=== PATIENT | female | born 1985 | race Caucasian/White ===

== ENCOUNTER → 2019-04-03 08:40 | Outpatient (CLI) | payer MEDICAID, SELFPAY ==
--- NOTE | 2019-04-03 08:47 | US_ITS ---
PROCEDURE: US ABDOMEN LIMITED CLINICAL INDICATION: ABD PAIN COMPARISON: No exams were available for comparison FINDINGS: PANCREAS: Unremarkable. No obvious mass or abnormal fluid collection. No ductal dilatation LIVER: No focal liver lesions demonstrated. Homogeneous echogenicity. No intrahepatic biliary ductal dilatation evident. There is appropriate direction of blood flow within a non dilated portal vein RIGHT KIDNEY: Unremarkable. Normal size and echogenicity. No hydronephrosis GALLBLADDER: No gallstones, gallbladder wall thickening, pericholecystic fluid, or biliary dilatation. There is some echogenic debris in the gallbladder which may be due to some mild amount of sludge which is of questionable clinical significance IMPRESSION: Mild amount of gallbladder sludge of questionable clinical significance otherwise negative right upper quadrant ultrasound Dictated by: Pedro Curry MD 04/03/2019 17:17 Electronically signed by Pedro Curry MD in [facility] 04/03/2019 17:17
== END ==
PROVIDERS: PCP Family Medicine; Visit Provider Physician Assistant
DX: R10.11 Right upper quadrant pain (principal)
CPT/HCPCS: 76705

== ENCOUNTER → 2019-08-27 09:54 | Outpatient (CLI) | payer OTHER, SELFPAY ==
--- NOTE | 2019-08-27 09:58 | NM_ITS ---
PROCEDURE: NM HEPATOBILIARY W PHARM CLINICAL INDICATION: RUQ PAIN COMPARISON: No exams were available for comparison TECHNIQUE: DOSE: 8.6 millicurie technetium 99 M Choletec, 1.4 micrograms of CCK. FINDINGS: Homogeneous activity is present within the hepatic parenchyma. Activity is present in the gallbladder by 10 minutes. Activity is present in the small bowel by 20 minutes. The gallbladder ejection fraction is calculated to be 66 percent. CCK-The patient did not report pain or other symptoms during CCK infusion. IMPRESSION: No evidence of cholecystitis with normal gallbladder ejection fraction at 66 percent. Dictated by: Edgar Reyes 08/27/2019 13:11 Electronically signed by Edgar Reyes in [facility] 08/27/2019 13:11
--- NOTE | 2019-08-27 11:16 | HMH.ITSHM ---
Current Home Medications as stated by this patient Nakita Mckenna or community service representative. [] allergy med
== END ==
PROVIDERS: PCP Family Medicine; Visit Provider Physician Assistant
DX: R10.11 Right upper quadrant pain (principal)
CPT/HCPCS: 78227; A9537; J2805

== ENCOUNTER → 2021-04-14 11:15 | Outpatient (CLI) | payer OTHER, SELFPAY ==
--- NOTE | 2021-04-14 11:22 | CT_ITS ---
PROCEDURE: CT ABDOMEN PELVIS W CON CLINICAL INDICATION: LLQ PAIN COMPARISON: No exams were available for comparison TECHNIQUE: IV Contrast: 75ML OPTIRAY 350 Oral Contrast 20ml Gastroview Axial images obtained with sagittal and coronal reformats. All CT scans at the facility use one or more dose reduction, viz: automated exposure control, ma/kV adjustment per patient size (including targeted exams where dose is matched to indication, i.e. head), or iterative reconstruction technique. FINDINGS: Lower thorax: No acute finding ABDOMEN: Liver: The liver normal in size. There is a tiny hypodense lesion consistent with a cyst right lobe of the liver.. Gallbladder: Nondistended. No radio opaque stones. Pancreas: No masses or peripancreatic fluid collections. Spleen: unremarkable Adrenals: unremarkable Kidneys/ureters: The kidneys are normal in size and show symmetrical function after injection of IV contrast. Both kidneys appear normal. ABDOMEN & PELVIS: Stomach bowel: Nondistended. No obvious mass or thickening. The small bowel appears normal. There is contrast mixed with stool in the right and transverse colon with moderate formed stool in the descending and sigmoid colon.. Peritoneum: No abnormal fluid collections. No obvious inflammatory changes. No free air. Lymph nodes: No enlarged lymph nodes apparent. Vasculature: No evidence of abdominal aortic aneurysm. No retroperitoneal hemorrhage evident. Bones: No acute fracture PELVIS: Reproductive: The uterus is normal in size and in the midline showing normal enhancement. There is a cystic-appearing lesion left adnexa measuring 2.0 x 2.1 x 2.6 cm likely an ovarian cyst. Bladder: The urinary bladder is partially decompressed but shows no obvious abnormality. There is no free fluid in the pelvis. Appendix: Not definitely visualized but there are no pericecal inflammatory changes noted. IMPRESSION: Probable small left ovarian cyst otherwise unremarkable CT scan abdomen and pelvis Dictated by: Dr. Trae Arnold MD 04/14/2021 11:52 Dr. Trae Arnold MD in [facility] 04/14/2021 11:52
== END ==
PROVIDERS: PCP Family Medicine; Visit Provider Physician Assistant
DX: R10.32 Left lower quadrant pain (principal)
CPT/HCPCS: 74177; Q9967

== ENCOUNTER → 2021-07-20 17:10 | Outpatient (CLI) | payer OTHER, SELFPAY ==
--- NOTE | 2021-07-20 | XR_ITS ---
PROCEDURE INFORMATION: Exam: XR Chest Exam date and time: 07/20/2021 12:00 AM Age: 36 years old Clinical indication: Shortness of breath; Additional info: SOA TECHNIQUE: Imaging protocol: XR of the chest. Views: 2 views. Total images: 2 COMPARISON: CR CXR CHEST(2 VIEWS-NOT PORTABLE) 08/12/2014 2:42 PM FINDINGS: Lungs: Normal pulmonary expansion. Pulmonary vasculature grossly normal. No gross pulmonary infiltrates or edema pattern. Pleural spaces: No pleural effusion. No pneumothorax. Heart/Mediastinum: Heart size normal. No tracheal/mediastinal shift. Bones/joints: No acute osseous abnormalities are identified. IMPRESSION: No acute thoracic process.
== END ==
PROVIDERS: PCP Physician Assistant; Visit Provider Physician Assistant
DX: R06.02 Shortness of breath (principal)
CPT/HCPCS: 71046

== ENCOUNTER → 2021-07-25 09:34 | Outpatient (CLI) | payer OTHER, SELFPAY ==
[2021-07-25 10:25] VITALS: PULSE 67; PULSE 70
== END ==
PROVIDERS: PCP Physician Assistant; Visit Provider Physician Assistant
DX: R06.02 Shortness of breath (principal)
CPT/HCPCS: 94060; 94640; 94727; 94729

== ENCOUNTER → 2023-03-28 06:52 | Outpatient (CLI) | payer OTHER, SELFPAY ==
--- NOTE | 2023-03-28 06:59 | CT_ITS ---
FINAL REPORT TECHNIQUE: Thin section axial CT images with coronal and sagittal reformats were performed through the neck. This study was performed with techniques to keep radiation doses as low as reasonably achievable (ALARA). Individualized dose reduction techniques using automated exposure control or adjustment of mA and/or kV according to the patient''s size were employed. CLINICAL HISTORY: swollen lymph node right side of neck COMPARISON: None FINDINGS: No cervical adenopathy or mass lesion is present . Salivary glands are normal. Larynx is unremarkable. Thyroid gland is unremarkable. Paranasal sinuses are well aerated. IMPRESSION: No acute process. Reviewed, Interpreted and Dictated by Maverick Suarez MD Transcribed by Kailyn Knott Authenticated and [facility]
== END ==
PROVIDERS: PCP Physician Assistant; Visit Provider Nurse Practitioner
DX: R59.9 Enlarged lymph nodes, unspecified (principal)
CPT/HCPCS: 70490

== ENCOUNTER → 2023-04-12 11:07 | Outpatient (CLI) | payer OTHER, SELFPAY ==
--- NOTE | 2023-04-12 11:16 | ECG_ITS ---
APPROVED REPORT Exam: Resting ECG HR:67 bpm ECG Measurements Heart Rate 67 AXES WA 158 P 58 QRSd 81 QRS 80 QT 387 T 66 QTc 403 Conclusion SINUS RHYTHM WITH SINUS ARRHYTHMIA NORMAL ECG UNCONFIRMED REPORT Electronically signed by : Nicola River MD 04/13/2023 07:58:01
[2023-04-12 12:09] LABS: Urine Pregnancy, HCG Qual. Negative (Negative)
[2023-04-12 12:11] LABS: Basophils # 0.1 K/mm3 (0-0.2); Basophils % 0.6 % (0.1-2.0); Eosinophils # 0.2 K/mm3 (0.0-0.4); Eosinophils % 2.5 % (0.1-12.0); Hemoglobin 14.2 g/dL (12.2-16.2); Lymphocytes # 2.3 K/mm3 (0.7-4.5); Lymphocytes % 28.3 % (10-50); Mean Corpuscular HGB Conc 32.2 g/dL (31.8-35.4); Mean Corpuscular Hemoglobin 29.8 pg (27.0-31.2); Mean Corpuscular Volume 92.5 fl (81-99); Mean Platelet Volume 7.5 fl (7.4-10.4); Monocytes # 0.5 K/mm3 (0.1-1.0); Monocytes % 5.8 % (1.7-9.3); Neutrophils # 5.1 K/mm3 (1.8-7.8); Neutrophils % 62.7 % (37.0-80.0); Platelet Count 354 K/mm3 (142-424); Red Blood Count 4.76 M/mm3 (4.20-5.40); Red Cell Distribution Width 12.5 % (11.5-17.5); White Blood Count 8.2 K/mm3 (4.8-10.8)
[2023-04-12 13:40] LABS: Chloride 105 mmol/L (98-107)
[2023-04-12 13:42] LABS: Alanine Aminotransferase 35 U/L (12-78); Alkaline Phosphatase 67 U/L (38-126); Aspartate Amino Transferase 28 U/L (14-36); Blood Urea Nitrogen 13 mg/dl (7-17); Estimated Glomerular Filt Rate 93 ml/min (>60); GFR (African American) 113 ML/MIN (>60)
[2023-04-12 13:43] LABS: Albumin Level 4.4 g/dl (3.5-5.0); Calcium 9.1 mg/dl (8.4-10.2); Glucose 78 mg/dl (74-100)
[2023-04-12 14:18] LABS: Sodium 141 mmol/L (136-145)
[2023-04-12 14:21] LABS: Albumin/Globulin Ratio 1.4 (1.1-1.8); Carbon Dioxide 24 mmol/L (22.0-30.0); Globulin 3.1 g/dL (1.3-3.2); Total Protein,Serum 7.5 g/dl (6.3-8.2)
== END ==
PROVIDERS: PCP Physician Assistant; Visit Provider Nurse Practitioner
DX: J35.8 Other chronic diseases of tonsils and adenoids (principal); R49.0 Dysphonia; R59.9 Enlarged lymph nodes, unspecified
CPT/HCPCS: 36415; 80053; 81025; 85025; 93005

== ENCOUNTER 2023-04-17 08:31 | Day surgery (SDC) | payer OTHER, SELFPAY ==
[2023-04-16 16:46] VITALS: BMI 29.9
[2023-04-17] VITALS (10 sets, daily range): BP systolic 107–126; BP diastolic 70–80; PULSE 74–83; RESP 16–18; TEMP 36.4–36.7; O2SAT 97–100
--- NOTE | 2023-04-17 09:00 | P.PNANES_ITS ---
[facility] Disclaimer: The information contained in this section may have been updated after the patient was seen, as this information can be updated by other users. Medical History History of LEEP (loop electrosurgical excision procedure) of cervix complicating Hoarseness Lesion of vocal cord Swelling, lymph nodes Tonsillar debris Surgical History History of tubal ligation Family History Other No significant family history Social History Smoking Status: Unknown if ever smoked alcohol intake: never substance use type: denies use current occupational status: employed Travel in the last 8 weeks: None [facility] Anesthesia Checklist Patient Identification Patient Identification: Arm Band and Verbal (Name & ) Structural Data Admitted From: Home Planned Operative Procedure/s: ML, excision LT. VC lesion Consent for Planned Operative Procedure(s) Verified: Yes Verified Documents: Surgical Consent and History and Physical NPO Status Verified Time NPO: 21:00 Chart Verification Results Verified: CBC, BMP, ECG and HCG Additional verifications Patient : No Anesthesia Reactions: No Hx Blood Transfusions: No Blood Transfusion Reaction: No Cephalosporin Allergy: No Previous Colonoscopy: No Cardiovascular Assessment Heart Sounds: S1 & S2 Pulse Rhythm: Irregular Peripheral Edema: No Airway Assessment Mallampati Score:: Class II C-Spine Mobility Assessed: Yes TMJ Mobility Assessed: Yes Dentition: Good Dentition (Nothing loose per pt.) Neurological Assessment Level of Consciousness: Awake, Alert and Appropriate Hx Seizures: No Numbness or tingling in extremities: No Anesthesia Plan Anesthesia Risk discussed: Yes Anesthesia Plan: Verified ASA Class: I Anesthesia Type: General
--- NOTE | 2023-04-17 11:01 | EXP.OP.NOTE ---
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 below the anterior commissure with possible involvement on the right side Procedure performed:: Microlaryngoscopy and excision of the left true vocal cord and subglottic lesion Surgeon:: Tucker Ahumada MD COMPLIANCE REVIEW SPECIALIST:: Ayaan Gray Anesthesia: GETA Estimated blood loss (mL): 0 Operative findings:: Irregular mucosal lesion involving the mid third and anterior third of the left true vocal cord with extension of the mucosal lesion into the subglottis below the anterior commissure and possibly crossing midline Operative note:: The patient was brought to the operating room and after adequate general anesthesia the mouth was draped in the usual sterile fashion and the upper teeth protected with a plastic guard and then an anterior commissure laryngoscope was employed to perform direct laryngoscopy. Base of tongue, vallecula, epiglottis, aryepiglottic folds, arytenoids, piriform sinuses, postcricoid area, and false cords were all normal. The laryngoscope was suspended in order to visualize the true vocal cords and then photographs of the obvious left true vocal cord lesion were taken. The operating microscope was then brought into position and microlaryngoscopy performed and the irregular mucosal lesion of the left vocal cord extended into the subglottis to the anterior commissure and probably crosses midline. Microcup forceps and microscissors were employed to excise the vocal cord lesion and a portion of the subglottic mucosal lesion and specimen was sent for permanent section analysis. Further photographs were taken. Hemostasis was established with topical adrenaline and topical lidocaine on a cottonoid pledget. The laryngoscope was then removed and the procedure concluded. All counts correct and blood loss was 0 and patient was sent to recovery in stable condition. Condition: stable Disposition: PACU Complications:: No complication
--- NOTE | 2023-04-17 11:03 | P.PNANES_ITS ---
[facility] Anesthesia Record Part I Anesthesia Record I Intake, IV Amount: 1,000 Hydration: Adequate Estimated blood loss (mL): 1 Urine output (mL): 0 Blood Products used (#): none Blood Pressure: 123/78 SaO2: 97 Pulse Rate: 81 Airway Patency: Patent Respiratory Rate: 16 Temperature: 97.5 F Patient is:: Drowsy and Stable Stable to PACU at:: 10:55
--- NOTE | 2023-04-18 11:00 | EXP.ANES.II ---
[facility] Anesthesia Record Part II Anesthesia Record Part II Discharge Time: 11:25 Destination: Surgical Day Care (OP Surgery) PACU nurse assessment reviewed?: Yes Patient Condition:: Good Anesthesia Complications:: None Swallowing reflex intact?: Yes Airway Patency: Patent Cyanosis?: No Blood Pressure: 126/77 SaO2: 99 Respiratory Rate: 16 Pulse Rate: 75 Temperature: 97.7 F Mental Status: Alert & Oriented Pain level:: 0 Nausea and/or vomitting:: None Intake, IV Amount: 0 Hydration: Adequate
[2023-04-18 11:01] VITALS: BP 126/77; PULSE 75; RESP 16; TEMP 36.5; O2SAT 99
== END 2023-04-17 12:10 | disposition home or self-care (01) ==
PROVIDERS: PCP Physician Assistant; Visit Provider Otolaryngology
PROC: 0CJS8ZZ Inspection of Larynx, Via Natural or Artificial Opening Endoscopic (ICD-10-PCS; CPT 31541; principal; 2023-04-17 10:00)
DX: C32.0 Malignant neoplasm of glottis (principal)
CPT/HCPCS: 31541; J2405